=== PATIENT | male | born 1995 | race Caucasian/White ===

== ENCOUNTER 2018-02-26 23:07 | Emergency (ER) | payer OTHER ==
[2018-02-26 23:35] VITALS: BP 117/64; PULSE 69; TEMP 98.2; BMI 22.6
--- NOTE | 2018-02-26 23:51 | PDOC ---
History of Present Illness - General History Source: Patient, Old Records Exam Limitations: No Limitations - History of Present Illness Initial Comments: 02/26/18 23:54 The patient is a 23 year old male with no significant past medical history who presents to the emergency department complaining of abdominal pain since this morning. The patient states that his last meal was 3 hours prior to arrival. He denies any alleviating or exacerbating factors. He denies any surgical history. <Ortiz Penny - Last Filed: 02/26/18 23:54> - General History Source: Patient <MarvinadriánAngelaOlvin - Last Filed: 02/27/18 01:51> - General Chief Complaint: Pain Stated Complaint: STOMACH PAIN Time Seen by Provider: 02/26/18 23:48 Past History <Ortiz Penny - Last Filed: 02/26/18 23:54> - Past Medical History COPD: No - Surgical History Abdominal Surgery: Yes - Suicide/Smoking/Psychosocial Hx Smoking Status: No Smoking History: Never smoked Number of Cigarettes Smoked Daily: 0 Information on smoking cessation initiated: No Hx Alcohol Use: No Drug/Substance Use Hx: No Substance Use Type: None <Olvin Uriarte - Last Filed: 02/27/18 01:51> - Past Medical History Allergies/Adverse Reactions: Allergies Allergy/AdvReac Type Severity Reaction Status Date / Time No Known Allergies Allergy Verified 06/30/13 17:22 Home Medications: Ambulatory Orders No Home Medications 0 dose .ROUTE UTDICT 05/05/12 Pantoprazole Sodium [Protonix] 40 mg PO DAILY #30 tablet. 02/27/18 Review of Systems - Review of Systems Able to Perform ROS?: Yes Comments:: 02/26/18 23:54 CONSTITUTIONAL: Absent: fever, no chills, no fatigue EYES: Absent: visual changes ENT: Absent: ear pain, no sore throat CARDIOVASCULAR: Absent: chest pain, no palpitations RESPIRATORY: Absent: cough, no SOB GI: (+) abdominal pain Absent: no nausea, no vomiting, no constipation, no diarrhea GENITOURINARY: Absent: dysuria, no frequency, no hematuria MUSCULOSKELETAL: Absent: back pain, no arthralgia, no myalgia SKIN: Absent: rash <Ortiz Penny - Last Filed: 02/26/18 23:54> *Physical Exam - Vital Signs Last Vital Signs Temp Pulse Resp BP Pulse Ox 98.2 F 69 20 117/64 97 02/26/18 23:26 02/26/18 23:26 02/26/18 23:26 02/26/18 23:26 02/26/18 23:26 - Physical Exam Comments: 02/26/18 23:55 GENERAL: Well-appearing, well-nourished. No apparent distress. HEENT: Normocephalic, atraumatic. PERRL, EOM intact. CARDIOVASCULAR: Normal S1, S2. Regular rate and rhythm. PULMONARY: Clear to auscultation bilaterally. ABDOMEN: Soft, non-distended, non-tender. EXTREMITIES: Normal ROM in all four extremities. No gross deformities. SKIN: Warm, dry. No rash NEUROLOGICAL: No focal neurological deficits. <Ortiz Penny - Last Filed: 02/26/18 23:54> - Vital Signs Last Vital Signs Temp Pulse Resp BP Pulse Ox 98.2 F 69 20 117/64 97 02/26/18 23:26 02/26/18 23:26 02/26/18 23:26 02/26/18 23:26 02/26/18 23:26 <Olvin Uriarte - Last Filed: 02/27/18 01:51> ED Treatment Course - LABORATORY CBC & Chemistry Diagram: 02/27/18 00:34 02/27/18 00:34 <Olvin Uriarte - Last Filed: 02/27/18 01:51> Medical Decision Making - Medical Decision Making 02/27/18 01:51 Dr. Uriarte: The scribe's documentation has been prepared under my direction and personally reviewed by me in its entirery. I confirm that the note above accurately reflects all work, treatment, procedures, and medical decision making performed by me. <Olvin Uriarte - Last Filed: 02/27/18 01:51> *DC/Admit/Observation/Transfer - Attestations Scribe Attestion: 02/26/18 23:55 Documentation prepared by Ortiz Penny, acting as medical device for Olvin Uriarte DO. <Ortiz Penny - Last Filed: 02/26/18 23:54> - Discharge Dispostion Decision to Admit order: No <Olvin Uriarte - Last Filed: 02/27/18 01:51> Diagnosis at time of Disposition: Abdominal pain Qualifiers: Abdominal location: generalized Qualified Code(s): R10.84 - Generalized abdominal pain GERD (gastroesophageal reflux disease) Qualifiers: Esophagitis presence: without esophagitis Qualified Code(s): K21.9 - Gastro- esophageal reflux disease without esophagitis - Discharge Dispostion Disposition: HOME Condition at time of disposition: Stable - Referrals Referrals: Travis Staples MD [Staff Physician] - - Patient Instructions Printed Discharge Instructions: DI for Abdominal Pain-Adult, DI for Gastroesophageal Reflux Disease (GERD), GERD Diet
[2018-02-27 00:52] LABS: BASO % 0.2 % (0-2.0); EOS % 0.9 % (0-4.5); HEMATOCRIT 43.7 % (35.4-49); HEMOGLOBIN 14.9 GM/dL (11.7-16.9); LYMPH % 30.3 % (8-40); MCH 31.9 pg (25.7-33.7); MCHC 34.1 g/dl (32.0-35.9); MEAN CELL VOLUME 93.6 fl (80-96); MEAN PLT VOLUME 9.5 fl (7.5-11.1); MONO % 5.8 % (3.8-10.2); NEUT % 62.8 % (42.8-82.8); PLATELET COUNT 146 K/MM3 (134-434); RBC 4.67 M/mm3 (4.00-5.60); RDW 12.2 % (11.9-15.9); WHITE BLOOD COUNT 5.8 K/mm3 (4.0-10.0)
[2018-02-27 01:28] LABS: URINE APPEARANCE CLEAR; URINE BILIRUBIN NEGATIVE (<2.0 mg/dL); URINE COLOR LTYELLOW; URINE GLUCOSE (UA) NEGATIVE (NEGATIVE); URINE KETONE TRACE (NEGATIVE); URINE LEUK ESTERASE NEGATIVE (NEGATIVE); URINE NITRITE NEGATIVE (NEGATIVE); URINE PROTEIN NEGATIVE (NEGATIVE); URINE UROBILINOGEN NEGATIVE mg/dL (0.2-1.0)
[2018-02-27 01:29] LABS: ALBUMIN 4.4 g/dl (3.4-5.0); AMYLASE 40 U/L (25-115); ANION GAP 8 (8-16); BILIRUBIN,TOTAL 1.1 mg/dL (0.2-1.0); BLOOD UREA NITROGEN 13 mg/dL (7-18); CALCIUM 8.8 mg/dL (8.5-10.1); CHLORIDE 105 mmol/L (98-107); CO2 26 mmol/L (21-32); CREATININE 0.8 mg/dL (0.7-1.3); GLUCOSE,RANDOM 76 mg/dL (74-106); LIPASE 91 U/L (73-393); MAGNESIUM 2.1 mg/dL (1.8-2.4); POTASSIUM 3.8 mmol/L (3.5-5.1); SGOT/AST 24 U/L (15-37); SGPT/ALT 62 U/L (12-78); SODIUM 139 mmol/L (136-145); TOT PROT 7.1 g/dl (6.4-8.2)
[2018-02-27 01:30] LABS: ALK PHOS 69 U/L (45-117)
[2018-02-27] MEDS ORDERED: PANTOPRAZOLE 40 MG TABLET (FP) PO ONE (01:51)
[2018-02-27] MEDS ORDERED: PANTOPRAZOLE 40 MG TABLET (FP) ONE (01:57)
== END 2018-02-27 02:10 | disposition home or self-care (01) ==
LOC: JER 23:07
DX: K21.9 Gastro-esophageal reflux disease without esophagitis (principal)
CPT/HCPCS: 36415; 80053; 81003; 82150; 83690; 83735; 85025; 99282-25